=== PATIENT | male | born 1965 | race Caucasian/White ===

== ENCOUNTER 2023-07-30 06:59 | Day surgery (SDC) | payer BC ==
[2023-07-27 08:26] VITALS: BMI 30.9
[2023-07-30] MEDS ORDERED: PROPOFOL 40 ML ONE (12:19)
[2023-07-30] MEDS ORDERED: fentaNYL 50 mcg/mL 1 mL Vial ONE (12:19)
[2023-07-30] MEDS ORDERED: Lidocaine 1% PF 5 ML VIAL ONE (12:20)
[2023-07-30] MEDS ORDERED: Ondansetron PF 4 MG/2 ML Vial ONE (12:21)
[2023-07-30] MEDS ORDERED: Dexamethasone 20 MG/5 ML VIAL ONE (12:21)
[2023-07-30] MEDS ORDERED: Oxymetazoline HCl 0.05% ( 15 ML ) ONE (12:56)
== END 2023-07-30 14:38 | disposition home or self-care (01) ==
LOC: CSHSDC 06:59
PROVIDERS: ATTEND Otolaryngology
PROC: 0CBR8ZX Excision of Epiglottis, Via Natural or Artificial Opening Endoscopic, Diagnostic (ICD-10-PCS; principal; 2023-07-30)
DX: J38.7 Other diseases of larynx (principal); K21.9 Gastro-esophageal reflux disease without esophagitis; J38.2 Nodules of vocal cords; D36.9 Benign neoplasm, unspecified site; I10 Essential (primary) hypertension; G47.33 Obstructive sleep apnea (adult) (pediatric); E66.9 Obesity, unspecified; Z68.33 Body mass index [BMI] 33.0-33.9, adult; Z79.899 Other long term (current) drug therapy; Z87.891 Personal history of nicotine dependence; Z90.49 Acquired absence of other specified parts of digestive tract; Z91.018 Allergy to other foods
CPT/HCPCS: 88305; J1100; J2405; J2704; J3010

== ENCOUNTER 2023-11-12 08:36 | Day surgery (SDC) | payer BC ==
[2023-11-09 11:42] VITALS: BMI 31.5
[2023-11-12] MEDS ORDERED: Rocuronium Bromide 10 MG/ML (10ML VIAL) ONE (10:39)
[2023-11-12] MEDS ORDERED: Lidocaine 1% PF 5 ML VIAL ONE (10:39)
[2023-11-12] MEDS ORDERED: PROPOFOL 20 ML ONE (10:39)
[2023-11-12] MEDS ORDERED: Dexamethasone 20 MG/5 ML VIAL ONE (10:39)
[2023-11-12] MEDS ORDERED: SUGAMMADEX SODIUM 200 MG/2 ML VIAL ONE ×2 (10:39→10:55)
[2023-11-12] MEDS ORDERED: fentaNYL 50 mcg/mL 1 mL Vial ONE (10:39)
[2023-11-12] MEDS ORDERED: Ondansetron PF 4 MG/2 ML Vial ONE ×2 (10:39→13:14)
[2023-11-12] MEDS ORDERED: EPINEPHrine 1 MG/ML VIAL ONE (10:46)
[2023-11-12] MEDS ORDERED: Triamcinolone 40 MG/ML VIAL ONE (10:55)
[2023-11-12] MEDS ORDERED: Hydrocodone-Acetamin 15 ML UDCUP ONE (12:58)
== END 2023-11-12 13:55 | disposition home or self-care (01) ==
LOC: CSHSDC 08:36
PROVIDERS: ATTEND Otolaryngology
PROC: 3E0F83Z Introduction of Anti-inflammatory into Respiratory Tract, Via Natural or Artificial Opening Endoscopic (ICD-10-PCS; principal; 2023-11-12)
PROC: 0CBR8ZX Excision of Epiglottis, Via Natural or Artificial Opening Endoscopic, Diagnostic (ICD-10-PCS; 2023-11-12)
DX: C32.9 Malignant neoplasm of larynx, unspecified (principal); J38.7 Other diseases of larynx; L98.0 Pyogenic granuloma; I10 Essential (primary) hypertension; Z79.899 Other long term (current) drug therapy; G47.30 Sleep apnea, unspecified; Z91.018 Allergy to other foods
CPT/HCPCS: 88305; J0171; J1100; J2405; J2704; J3010; J3301